=== PATIENT | female | born 1965 ===

== ENCOUNTER 2017-12-20 09:09 | Emergency (ER) | payer MEDICAID ==
[2017-12-20 09:24] VITALS: TEMP 97.8; BMI 29.5
--- NOTE | 2017-12-20 09:52 | ED PDOC ---
HPI: Headache Time Seen by Provider: 12/20/17 09:31 Chief Complaint (Nursing): Headache Chief Complaint (Provider): Headache History Per: Patient History/Exam Limitations: no limitations Onset/Duration Of Symptoms: Other (1.5 months) Current Symptoms Are (Timing): Still Present Additional Complaint(s): 52 year old female presents to the ED complaining of left posterior headache for 1.5 months. Denies injury, fever, weakness, visual disturbance, or dizziness. PMD: Amarilis Aguirre Past Medical History Reviewed: Historical Data, Nursing Documentation, Vital Signs Vital Signs: Last Vital Signs Temp 97.8 F 12/20/17 09:23 Pulse 84 12/20/17 09:23 Resp 18 12/20/17 09:23 BP 130/97 H 12/20/17 09:23 Pulse Ox 97 12/20/17 09:23 - Medical History PMH: No Chronic Diseases - Surgical History Surgical History: No Surg Hx, - Family History Family History: States: Unknown Family Hx - Social History Current smoker - smoking cessation education provided: No Alcohol: None Drugs: Denies - Immunization History Hx Tetanus Toxoid Vaccination: No Hx Influenza Vaccination: No Hx Pneumococcal Vaccination: No - Home Medications Home Medications: Ambulatory Orders Medication Instructions Recorded Amoxicillin/Clavulanate [Augmentin 1 tab PO BID #14 tab 05/03/14 875 MG-125 MG] Naproxen [Naprosyn] 375 mg PO BID PRN #15 tab 05/03/14 Sulfamethoxazole/Trimethopri 1 tab PO BID #14 tab 05/03/14 [Bactrim Ds 800 mg-160 mg] Cyclobenzaprine [Cyclobenzaprine 10 mg PO TID PRN #15 tab 08/31/14 HCl] Naproxen [Naprosyn Tab] 500 mg PO BID PRN #20 tab 08/31/14 Ibuprofen [Motrin Tab] 800 mg PO Q8 #20 tab 03/15/15 Oxycodone HCl/Acetaminophen 1 tab PO Q4 #10 tab 03/15/15 [Percocet 325 mg-5 mg] Naproxen [Naprosyn] 500 mg PO BID PRN #30 tab 03/13/16 Naproxen [Naprosyn] 500 mg PO Q12H #20 tab 12/20/17 - Allergies Allergies/Adverse Reactions: Allergies Allergy/AdvReac Type Severity Reaction Status Date / Time No Known Allergies Allergy Verified 03/15/15 12:45 Review of Systems ROS Statement: Except As Marked, All Systems Reviewed And Found Negative Constitutional: Negative for: Fever Eyes: Negative for: Vision Change Neurological: Positive for: Headache (Left posterior headache). Negative for: Weakness, Dizziness Physical Exam - Reviewed Nursing Documentation Reviewed: Yes Vital Signs Reviewed: Yes - Physical Exam Appears: Positive for: Non-toxic, No Acute Distress Head Exam: Positive for: ATRAUMATIC, NORMOCEPHALIC Skin: Positive for: Normal Color, Warm, Dry Eye Exam: Positive for: Normal appearance Neck: Positive for: Normal, Painless ROM, Supple Extremity: Positive for: Normal ROM Neurologic/Psych: Positive for: Alert, buttonhole facer II-XII, Oriented (x3). Negative for: Motor/Sensory Deficits - ECG O2 Sat by Pulse Oximetry: 97 (RA) Pulse Ox Interpretation: Normal Medical Decision Making Medical Decision Making: Initial Impression: Headache Initial Plan: --Head CT Scribe Attestation: Documented by Marvel Poole acting as a scribe for Kris Huerta MD. Provider Scribe Attestation: All medical record entries made by the Scribe were at my direction and personally dictated by me. I have reviewed the chart and agree that the record accurately reflects my personal performance of the history, physical exam, medical decision making, and the department course for this patient. I have also personally directed, reviewed, and agree with the discharge instructions and disposition. Disposition - Clinical Impression Clinical Impression: Headache - Patient ED Disposition Is Patient to be Admitted: No Counseled Patient/Family Regarding: Studies Performed, Diagnosis, Need For Followup, Rx Given - Disposition Referrals: Iggy Lantigua MD [Medical Doctor] - Disposition: Routine/Home Disposition Time: 11:26 Condition: FAIR Prescriptions: Naproxen [Naprosyn] 500 mg PO Q12H #20 tab Instructions: Headache, Adult Forms: [facility] ([place])
--- NOTE | 2017-12-20 11:25 | CT ---
Date of service: 12/20/2017 PROCEDURE: CT HEAD WITHOUT CONTRAST. HISTORY: r/o bleed COMPARISON: None available. TECHNIQUE: Axial computed tomography images were obtained through the head/brain without intravenous contrast. Radiation dose: Total exam DLP = 782.64 mGy-cm. This CT exam was performed using one or more of the following dose reduction techniques: Automated exposure control, adjustment of the mA and/or kV according to patient size, and/or use of iterative reconstruction technique. FINDINGS: HEMORRHAGE: No intracranial hemorrhage. BRAIN: No mass effect or edema. No atrophy or chronic microvascular ischemic changes. VENTRICLES: Unremarkable. No hydrocephalus. CALVARIUM: Unremarkable. PARANASAL SINUSES: Unremarkable as visualized. No significant inflammatory changes. MASTOID AIR CELLS: Unremarkable as visualized. No inflammatory changes. OTHER FINDINGS: None. IMPRESSION: Normal CT of the Head.
[2017-12-20 11:48] VITALS: BP 126/76; PULSE 77; RESP 17; O2SAT 100
== END 2017-12-20 11:47 | disposition home or self-care (01) ==
LOC: H.ER 09:09
DX: R51 Headache (principal)